=== PATIENT | female | born 1960 | race Two or more races ===

== ENCOUNTER 2019-01-26 04:22 | Emergency (ER) | payer OTHER ==
[~2019-01-26] VITALS: Ht 160 cm; Wt 77.1 kg
[2019-01-26] MEDS ORDERED: POTASSIUM (05:22)
[2019-01-26] MEDS ORDERED: TOPROL XL200 MG (05:23)
[2019-01-26] MEDS ORDERED: COZAAR25 MG (05:23)
[2019-01-26] MEDS ORDERED: CLONIDINE HCL0.2 MG (05:24)
[2019-01-26] MEDS ORDERED: LEVO-T125 MCG (05:24)
[2019-01-26] MEDS ORDERED: JANUMET XR 50-1 EACH (05:25)
[2019-01-26] MEDS ORDERED: FLONASE ALLERG9.9 ML (05:26)
[2019-01-26] MEDS ORDERED: PNEU16DI2 (05:27)
== END 2019-01-26 13:30 | disposition home or self-care (01) ==
LOC: ER 04:22
DX: R55 Syncope and collapse (principal)